=== PATIENT | female | born 1960 | race African-American/Black ===

== ENCOUNTER 2018-05-24 20:14 | Emergency (ER) | payer OTHER ==
[~2018-05-24] VITALS: Ht 157.5 cm; Wt 67.1 kg
[2018-05-24] MEDS ORDERED: TENORMIN50 M1 (20:33)
[2018-05-24] MEDS ORDERED: BAYER CHILDREN'81 MG (20:33)
== END 2018-05-24 22:33 | disposition home or self-care (01) ==
LOC: ER 20:14
DX: S00.83XA Contusion of other part of head, initial encounter (principal); W01.198A Fall on same level from slipping, tripping and stumbling with subsequent striking against other object, initial encounter; Y93.89 Activity, other specified; Y92.511 Restaurant or cafe as the place of occurrence of the external cause; Y99.8 Other external cause status